=== PATIENT | male | born 1950 | race Two or more races ===

== ENCOUNTER 2024-08-12 19:35 | Inpatient (IN) | payer MEDICARE, BC ==
[~2024-08-12] VITALS: Ht 172.7 cm; Wt 68.0 kg
[2024-08-12] MEDS ORDERED: CLONIDINE HCL 0.1 MG TABLET PO ONE (20:00)
[2024-08-12] MEDS ORDERED: CLONAZEPAM 0.5 MG TABLET PO ONE (20:00)
[2024-08-12] MEDS ORDERED: LOSA1TAB3 PO (20:02)
[2024-08-12] MEDS ORDERED: CLONAZEPAM 1 MG TABLET ONE (20:03)
[2024-08-12] MEDS ORDERED: CLONIDINE HCL 0.1 MG TABLET ONE (20:03)
[2024-08-12] MEDS ORDERED: LOSA1TAB15 PO (20:09)
[2024-08-12 21:45] VITALS: BP 142/80; TEMP 97.7; O2SAT 99
[2024-08-12] MEDS ORDERED: MAG HYDROX/AL HYDROX/SIMETH 30 ML LIQUID UDC PO PRN (22:30)
[2024-08-12] MEDS ORDERED: CLONAZEPAM 0.5 MG TABLET PO PRN (22:30)
[2024-08-12] MEDS ORDERED: TEMAZEPAM 7.5 MG CAPSULE PO PRN (22:30)
[2024-08-12] MEDS ORDERED: ACETAMINOPHEN 325 MG TABLET PO PRN (22:30)
[2024-08-12] MEDS ORDERED: MAGNESIUM HYDROXIDE 30 ML LIQUID UDC PO PRN (22:30)
[2024-08-12] MEDS: TEMAZEPAM 7.5 MG CAPSULE PO PRN (23:19)
[2024-08-13 07:53] LABS: ALANINE AMINOTRANSFERASE 20 U/L (16-63); ALBUMIN 3.1 g/dL (3.4-5.0); ALKALINE PHOSPHATASE 68 U/L (50-136); ASPARTATE AMINOTRANSFERASE 10 U/L (15-37); BILIRUBIN,TOTAL 0.3 mg/dL (0.2-1.0); CALCIUM 8.9 mg/dL (8.5-10.1); CARBON DIOXIDE 33 mmol/L (21-32); CHLORIDE 106 mmol/L (98-107); CREATININE 1.1 mg/dL (0.6-1.3); GLUCOSE 121 mg/dL (74-106); POTASSIUM 3.4 mmol/L (3.5-5.1); SODIUM SERUM 144 mmol/L (136-145); TOTAL PROTEIN, SERUM 6.2 g/dL (6.4-8.2); UREA NITROGEN, BLOOD 28 mg/dL (7-18)
[2024-08-13 07:58] VITALS: BP 139/86; TEMP 97.8; O2SAT 99
[2024-08-13] MEDS: risperiDONE 0.5 MG TABLET PO SCH (09:42)
[2024-08-13] MEDS: LOSARTAN POTASSIUM 50 MG TABLET PO SCH (14:20)
[2024-08-13] MEDS: POTASSIUM CHLORIDE 20 MEQ POWDER PACKET PO ONE (14:21)
[2024-08-13] MEDS: HYDROCHLOROTHIAZIDE 25 MG TABLET PO SCH (14:21)
[2024-08-13 15:56] VITALS: BP 127/67; TEMP 97.6; O2SAT 99
[2024-08-13] MEDS: CLONAZEPAM 0.5 MG TABLET PO PRN (20:36)
[2024-08-13 21:48] VITALS: BP 90/51; TEMP 98; O2SAT 98
[2024-08-14 08:00] VITALS: BP 116/60; TEMP 98.3; O2SAT 99
[2024-08-14] MEDS ORDERED: LOSARTAN PO SCH (09:00)
[2024-08-14] MEDS ORDERED: [UNRECOGNIZED DRUG - OTHER] PO SCH (09:00)
[2024-08-14] MEDS ORDERED: HYDROCHLOROTHIAZIDE PO SCH (09:00)
[2024-08-14 15:11] VITALS: BP 122/60; TEMP 98.2; O2SAT 99
[2024-08-15 15:45] VITALS: BP 133/59; TEMP 99; O2SAT 98
[2024-08-15 20:08] VITALS: BP 130/66; TEMP 98.6; O2SAT 96
[2024-08-16 08:00] VITALS: BP 139/59; TEMP 98; TEMP 99; O2SAT 99
[2024-08-16 15:23] VITALS: BP 138/52; TEMP 98; O2SAT 99
[2024-08-16 19:52] VITALS: BP 126/56; TEMP 98; O2SAT 98
[2024-08-17] MEDS: OLANZAPINE ZYDIS 5 MG TAB.RAPDIS PO SCH (14:06)
[2024-08-17 15:34] VITALS: BP 112/61; TEMP 98; O2SAT 98
[2024-08-17 20:17] VITALS: BP 112/50; TEMP 98.1; O2SAT 98
[2024-08-18 08:45] VITALS: BP 141/54; TEMP 98; O2SAT 99
[2024-08-18] MEDS: ENSURE WITH FIBER 237 ML LIQUID (CHOCOLATE) PO SCH (10:56)
[2024-08-18 16:38] VITALS: BP 152/79; TEMP 98; O2SAT 99
[2024-08-18 20:08] VITALS: BP 142/62; TEMP 98.1; O2SAT 98
[2024-08-19 08:42] VITALS: BP 150/55; TEMP 98; O2SAT 100
[2024-08-19 15:48] VITALS: BP 125/52; TEMP 98; O2SAT 98
[2024-08-19 20:00] VITALS: BP 150/64; TEMP 97.3; O2SAT 100
[2024-08-20 07:58] VITALS: BP 132/55; TEMP 98; O2SAT 99
[2024-08-20 15:13] VITALS: BP 139/57; TEMP 97.8; O2SAT 100
[2024-08-20] MEDS: OLANZAPINE ZYDIS 5 MG TAB.RAPDIS PO SCH (16:53)
[2024-08-20 20:09] VITALS: BP 130/56; TEMP 97.9; O2SAT 98
[2024-08-21 08:00] VITALS: BP 147/41; TEMP 98.2; O2SAT 99
[2024-08-21 20:26] VITALS: BP 122/56; TEMP 97.9; O2SAT 100
[2024-08-22 08:10] VITALS: BP 132/52; TEMP 98.2; O2SAT 98
[2024-08-22 15:26] VITALS: BP 101/62; TEMP 98; O2SAT 98
[2024-08-22 20:26] VITALS: BP 148/54; TEMP 98.1; O2SAT 96
[2024-08-23] MEDS: AMLODIPINE 5 MG TABLET PO SCH (08:21)
[2024-08-23 08:37] VITALS: BP 166/72; TEMP 98; O2SAT 96
[2024-08-23 15:29] VITALS: BP 129/69; TEMP 98; O2SAT 98
[2024-08-23 20:00] VITALS: BP 100/42; TEMP 97.9; O2SAT 98
[2024-08-24 06:34] LABS: CALCIUM 8.8 mg/dL (8.5-10.1); CARBON DIOXIDE 32 mmol/L (21-32); CHLORIDE 106 mmol/L (98-107); GLUCOSE 99 mg/dL (74-106); MAGNESIUM 2.2 mg/dL (1.8-2.4); POTASSIUM 3.9 mmol/L (3.5-5.1); SODIUM SERUM 144 mmol/L (136-145); UREA NITROGEN, BLOOD 33 mg/dL (7-18)
[2024-08-24 08:10] VITALS: BP 133/66; TEMP 98; O2SAT 98
[2024-08-24 15:49] VITALS: BP 126/51; TEMP 98; O2SAT 98
[2024-08-24 20:00] VITALS: BP 110/48; TEMP 98; O2SAT 97
[2024-08-25 08:05] VITALS: BP 154/61; TEMP 98; O2SAT 98
[2024-08-25 09:30] VITALS: BP 154/61
== END 2024-08-25 12:30 | DRG 885 ==
LOC: ER 19:39 → GPS 21:01
PROVIDERS: ADMIT Psychiatry & Neurology Psychiatry; ATTEND Nurse Practitioner Acute Care
DX: F29 Unspecified psychosis not due to a substance or known physiological condition (principal); E44.1 Mild protein-calorie malnutrition; E88.09 Other disorders of plasma-protein metabolism, not elsewhere classified; F20.9 Schizophrenia, unspecified; I10 Essential (primary) hypertension; E87.6 Hypokalemia; F41.9 Anxiety disorder, unspecified; F94.0 Selective mutism; Z87.448 Personal history of other diseases of urinary system
CPT/HCPCS: 36415; 83735

== ENCOUNTER 2024-11-20 13:59 | Inpatient (IN) | payer MEDICARE, BC ==
[~2024-11-20] VITALS: Ht 172.7 cm; Wt 77.1 kg
[~2024-11-20 13:59] MED LIST: LOSA1TAB15 PO
[2024-11-20 14:34] LABS: BASOPHILS % (AUTO) 0.7 % (0.0-2.0); EOSINOPHILS # (AUTO) 0.1 K/uL (0.0-0.7); EOSINOPHILS % (AUTO) 2.2 % (0.0-7.0); HEMATOCRIT 32.7 % (36.7-47.1); HEMOGLOBIN 11.1 g/dL (12.5-16.3); LYMPHOCYTES # (AUTO) 1.5 K/uL (0.8-4.8); LYMPHOCYTES % (AUTO) 27.8 % (20.5-51.5); MEAN CORPUSCULAR HEMOGLOBIN 30.9 uug (23.8-33.4); MEAN CORPUSCULAR HGB CONC 34 g/dL (32.5-36.3); MEAN CORPUSCULAR VOLUME 90.9 fL (73.0-96.2); MONOCYTES # (AUTO) 0.4 K/uL (0.1-1.30); MONOCYTES % (AUTO) 7.6 % (0.0-11.0); NEUTROPHILS # (AUTO) 3.4 K/uL (1.8-8.9); NEUTROPHILS % (AUTO) 61.7 % (38.5-71.5); PLATELET COUNT (AUTO) 224 K/uL (152-348); RED BLOOD CELL COUNT(AUTO) 3.59 MIL/uL (4.06-5.63); RED CELL DISTRIBUTION WIDTH 14.5 % (12.1-16.2); WHITE BLOOD COUNT (AUTO) 5.5 K/uL (3.6-10.2)
[2024-11-20 14:43] LABS: CALCIUM 8.8 mg/dL (8.5-10.1); CARBON DIOXIDE 30 mmol/L (21-32); CHLORIDE 106 mmol/L (98-107); CREATININE 0.8 mg/dL (0.6-1.3); GLUCOSE 111 mg/dL (74-106); POTASSIUM 3.4 mmol/L (3.5-5.1); SODIUM SERUM 142 mmol/L (136-145); UREA NITROGEN, BLOOD 21 mg/dL (7-18)
[2024-11-20] MEDS ORDERED: ACET-3117 PO (14:46)
[2024-11-20] MEDS ORDERED: AMLO5TAB4 PO (14:46)
[2024-11-20] MEDS ORDERED: BISA10SU61 RC (14:46)
[2024-11-20] MEDS ORDERED: CYAN100T44 PO (14:46)
[2024-11-20] MEDS ORDERED: MAGN400O6 PO (14:46)
[2024-11-20] MEDS ORDERED: OLAN5TAB3 PO (14:46)
[2024-11-20] MEDS ORDERED: MINE133E RC (14:46)
[2024-11-20 14:48] LABS: DIFFERENTIAL COMMENT 1
[2024-11-20 14:51] LABS: ALANINE AMINOTRANSFERASE 29 U/L (16-63); ALBUMIN 3.5 g/dL (3.4-5.0); ALKALINE PHOSPHATASE 87 U/L (50-136); ASPARTATE AMINOTRANSFERASE 20 U/L (15-37); BILIRUBIN,DIRECT 0.2 mg/dL (0.0-0.2); BILIRUBIN,TOTAL 0.4 mg/dL (0.2-1.0); TOTAL PROTEIN, SERUM 7.1 g/dL (6.4-8.2)
[2024-11-20 14:54] LABS: ACETAMINOPHEN < 2.0 ug/mL (10-30)
[2024-11-20 15:00] LABS: ETHANOL < 3 MG/DL (0-10)
[2024-11-20] MEDS ORDERED: MAGNESIUM HYDROXIDE 30 ML LIQUID UDC PO PRN (21:30)
[2024-11-20] MEDS ORDERED: MAG HYDROX/AL HYDROX/SIMETH 30 ML LIQUID UDC PO PRN (21:30)
[2024-11-20] MEDS ORDERED: QUETIAPINE FUMARATE 25 MG TABLET PO PRN (21:30)
[2024-11-20] MEDS ORDERED: ACETAMINOPHEN 325 MG TABLET PO PRN (21:30)
[2024-11-20] MEDS ORDERED: ZOLPIDEM 5 MG TABLET PO PRN (21:30)
[2024-11-20] MEDS: BLOOD SUGAR DIAGNOSTIC 1 EACH STRIP VI ONE (22:00)
[2024-11-21] MEDS: ZOLPIDEM 5 MG TABLET PO PRN (01:07)
[2024-11-21 07:45] LABS: THYROID STIMULATING HORMONE 2.666 mIU/mL (0.358-3.740)
[2024-11-21 08:16] VITALS: BP 152/68; TEMP 98; O2SAT 97
[2024-11-21] MEDS: risperiDONE 0.5 MG TABLET PO SCH (11:52)
[2024-11-21] MEDS: DIVALPROEX 125 MG TABLET.DR PO SCH (13:12)
[2024-11-21 20:06] VITALS: BP 146/66; TEMP 98.1; O2SAT 96
[2024-11-21] MEDS: REMEDY ESSENTIAL ZINC PASTE 113 GM TOP SCH (20:16)
[2024-11-22 08:19] VITALS: BP 165/77; TEMP 98; O2SAT 98
[2024-11-22 16:22] VITALS: BP 160/70; TEMP 98; O2SAT 98
[2024-11-22 22:16] VITALS: BP 142/71; TEMP 97.8; O2SAT 100
[2024-11-23 07:30] VITALS: BP 167/65; TEMP 98; O2SAT 96
[2024-11-23] MEDS: AMLODIPINE 5 MG TABLET PO SCH (13:33)
[2024-11-23 15:57] VITALS: BP 155/71; TEMP 98; O2SAT 99
[2024-11-23 20:00] VITALS: BP 155/67; TEMP 97.6; O2SAT 100
[2024-11-24 08:16] VITALS: BP 167/96; TEMP 97.5; O2SAT 100
[2024-11-24] MEDS: AMLODIPINE 5 MG TABLET PO ONE (12:37)
[2024-11-24] MEDS: DIVALPROEX 125 MG TABLET.DR PO SCH (14:28)
[2024-11-24 16:20] VITALS: BP 181/83; TEMP 98.3; O2SAT 100
[2024-11-24 20:00] VITALS: BP 130/43; TEMP 97.4; O2SAT 99
[2024-11-24] MEDS: risperiDONE 1 MG TABLET PO SCH (20:48)
[2024-11-24 21:00] VITALS: BP 142/68; TEMP 97.6; O2SAT 98
[2024-11-25 08:00] VITALS: BP 121/64; TEMP 98; O2SAT 100
[2024-11-25] MEDS: risperiDONE 0.5 MG TABLET PO SCH (08:38)
[2024-11-25] MEDS: AMLODIPINE 10 MG TABLET PO SCH (08:38)
[2024-11-25] MEDS ORDERED: AMLODIPINE 5 MG TABLET PO SCH (09:00)
[2024-11-25 15:48] VITALS: BP 133/73; TEMP 98.2; O2SAT 100
[2024-11-25 20:00] VITALS: BP 151/72; TEMP 97.4; O2SAT 100
[2024-11-26 08:20] VITALS: BP 170/77; TEMP 97.5; O2SAT 97
[2024-11-26] MEDS: LISINOPRIL 10 MG TABLET PO SCH (13:14)
[2024-11-26 16:41] VITALS: BP 129/62; TEMP 98.3; O2SAT 98
[2024-11-26 20:23] VITALS: BP 130/56; TEMP 97.6; O2SAT 97
[2024-11-27 08:20] VITALS: BP 122/81; TEMP 97.6; O2SAT 100
[2024-11-27] MEDS: NEOMY/BACITRAC/POLYMI OINT 28.35 GM TUBE TOP SCH (11:20)
[2024-11-27 16:48] VITALS: BP 127/69; TEMP 97.3; O2SAT 100
[2024-11-27] MEDS: risperiDONE 1 MG TABLET PO SCH (20:14)
[2024-11-27 20:18] VITALS: BP 124/72; TEMP 97.9; O2SAT 98
[2024-11-28] MEDS: risperiDONE 1 MG TABLET PO SCH (08:15)
[2024-11-28 08:20] VITALS: BP 157/77; TEMP 97.7; O2SAT 98
[2024-11-28 16:49] VITALS: BP 101/51; TEMP 97.5; O2SAT 98
[2024-11-28 20:03] VITALS: BP 138/52; TEMP 98.1; O2SAT 97
[2024-11-29 07:58] VITALS: BP 154/62; TEMP 98; O2SAT 98
[2024-11-29 15:24] VITALS: BP 110/47; TEMP 98; O2SAT 98
[2024-11-29 20:00] VITALS: BP 123/45; TEMP 97.8; O2SAT 99
[2024-11-29] MEDS: risperiDONE 1 MG TABLET PO SCH (20:45)
[2024-11-30 07:47] VITALS: BP 157/67; TEMP 98; O2SAT 100
[2024-11-30] MEDS: risperiDONE 1 MG TABLET PO SCH (08:47)
[2024-11-30 15:19] VITALS: BP 129/58; TEMP 98; O2SAT 98
[2024-11-30 20:00] VITALS: BP 140/66; TEMP 97.9; O2SAT 99
[2024-11-30] MEDS: MELATONIN 3 MG TABLET PO SCH (20:15)
[2024-12-01 07:44] VITALS: BP 138/51; TEMP 98.4; O2SAT 100
[2024-12-01 15:41] VITALS: BP 130/67; TEMP 98; O2SAT 100
[2024-12-01 20:00] VITALS: BP 142/63; TEMP 97.9; O2SAT 100
[2024-12-02 07:38] VITALS: BP 141/70; TEMP 98.2; O2SAT 99
[2024-12-02] MEDS: risperiDONE 2 MG TABLET PO SCH (08:45)
[2024-12-02] MEDS ORDERED: risperiDONE 1 MG TABLET PO SCH (09:00)
[2024-12-02 15:20] VITALS: BP 107/56; TEMP 98; O2SAT 98
[2024-12-02 20:56] VITALS: BP 127/70; TEMP 97.7; O2SAT 96
[2024-12-03 09:36] VITALS: BP 94/48; TEMP 97.6; O2SAT 100
[2024-12-03 16:50] VITALS: BP 132/62; TEMP 97.3; O2SAT 100
[2024-12-03 20:26] VITALS: BP 120/60; TEMP 97.9; O2SAT 99
[2024-12-04 08:18] VITALS: BP 146/69; TEMP 98; O2SAT 97
[2024-12-04 16:54] VITALS: BP 135/65; TEMP 97.7; O2SAT 100
[2024-12-04 20:02] VITALS: BP 109/61; TEMP 98.1; O2SAT 98
[2024-12-04] MEDS: BENZTROPINE MESYLATE 0.5 MG TABLET PO SCH (21:39)
[2024-12-04] MEDS: TEMAZEPAM 7.5 MG CAPSULE PO SCH (21:39)
[2024-12-05 08:18] VITALS: BP 155/65; TEMP 98.4; O2SAT 97
[2024-12-05 16:25] VITALS: BP 168/71; TEMP 98; O2SAT 99
[2024-12-05 20:00] VITALS: BP 140/70; TEMP 97.8; O2SAT 100
[2024-12-05] MEDS: MELATONIN 3 MG TABLET PO SCH (20:54)
[2024-12-05] MEDS: risperiDONE 1 MG TABLET PO SCH (20:55)
[2024-12-06 07:44] VITALS: BP 135/63; TEMP 98.2; O2SAT 100
[2024-12-06 09:15] VITALS: BP 135/63
== END 2024-12-06 11:30 | DRG 885 ==
LOC: ER 13:59 → GPS 18:00
PROVIDERS: ADMIT Psychiatry & Neurology Psychiatry; ATTEND Student in an Organized Health Care Education/Training Program
DX: F39 Unspecified mood [affective] disorder (principal); F31.2 Bipolar disorder, current episode manic severe with psychotic features; S01.81XD Laceration without foreign body of other part of head, subsequent encounter; X58.XXXD Exposure to other specified factors, subsequent encounter; F20.9 Schizophrenia, unspecified; D64.9 Anemia, unspecified; F41.9 Anxiety disorder, unspecified; E87.6 Hypokalemia; Z91.010 Allergy to peanuts; Z91.51 Personal history of suicidal behavior; I10 Essential (primary) hypertension; Z86.39 Personal history of other endocrine, nutritional and metabolic disease; G31.84 Mild cognitive impairment of uncertain or unknown etiology
CPT/HCPCS: 36415; 70450; 71045; 80164; 84443; 84484; 85025; G0480